=== PATIENT | female | born 1990 | race African-American/Black ===

== ENCOUNTER 2016-04-10 19:49 | Emergency (ER) | payer MEDICAID ==
[~2016-04-10] VITALS: Ht 162.6 cm; Wt 87.5 kg
[2016-04-10] MEDS ORDERED: IPRATRPIUM/ALBUTEROL 0.5/2.5MG 3 ML NEBU. NEB ONE ×2 (20:15→21:00)
[2016-04-10] MEDS ORDERED: PREDNISONE 20 MG TABLET PO ONE (21:00)
[2016-04-10 21:28] VITALS: BP 111/59
[2016-04-10] MEDS ORDERED: PROAIR HFA8.5 GM INH (21:39)
[2016-04-10] MEDS ORDERED: PRED50TA PO (21:39)
--- NOTE | 2016-04-10 21:39 | PHYS DOC ---
Past Medical History Past Medical History: Asthma Past Surgical History: No Surgical History Alcohol Use: None Drug Use: None Adult General Chief Complaint Chief Complaint: ASTHMA HPI HPI This is a 26-year-old female who has history of asthma that's been fairly well controlled without medication to comes in with mild shortness of breath for the past day. Patient states she does not have an inhaler and states she has not required one recent past. She denies any fever or chills or cough. She denies any chest pain. She denies any other history of several medical problems. She is speaking in complete sentences and in no signs of respiratory distress at this time. Review of Systems Review of Systems Constitutional: Denies fever or chills [] Eyes: Denies change in visual acuity, redness, or eye pain [] HENT: Denies nasal congestion or sore throat [] Respiratory: Denies cough, has shortness of breath [] Cardiovascular: No additional information not addressed in HPI [] GI: Denies abdominal pain, nausea, vomiting, bloody stools or diarrhea [] : Denies dysuria or hematuria [] Musculoskeletal: Denies back pain or joint pain [] Integument: Denies rash or skin lesions [] Neurologic: Denies headache, focal weakness or sensory changes [] Endocrine: Denies polyuria or polydipsia [] Current Medications Current Medications Current Medications Medications (Trade) Dose Ordered Sig/Sandra Start Time Stop Time Status Last Admin Dose Admin Albuterol/ Ipratropium (Duoneb) 3 ml 1X ONCE 04/10/16 21:00 04/10/16 21:01 DC 04/10/16 20:56 3 ML Prednisone (Prednisone) 50 mg 1X ONCE 04/10/16 21:00 04/10/16 21:01 DC 04/10/16 21:13 50 MG Allergies Allergies Allergies Coded Allergies Type Severity Reaction Last Updated Verified No Known Drug Allergies 04/10/16 No Physical Exam Physical Exam Constitutional: Well developed, well nourished, no acute distress, non-toxic appearance. [] HENT: Normocephalic, atraumatic, bilateral external ears normal, oropharynx moist, no oral exudates, nose normal. [] Eyes: PERRLA, EOMI, conjunctiva normal, no discharge. [] Neck: Normal range of motion, no tenderness, supple, no stridor. [] Cardiovascular:Heart rate regular rhythm, no murmur [] Lungs & Thorax: Bilateral breath sounds clear to auscultation [] Abdomen: Bowel sounds normal, soft, no tenderness, no masses, no pulsatile masses. [] Skin: Warm, dry, no erythema, no rash. [] Back: No tenderness, no CVA tenderness. [] Extremities: No tenderness, no cyanosis, no clubbing, ROM intact, no edema. [] Neurologic: Alert and oriented X 3, normal motor function, normal sensory function, no focal deficits noted. [] Psychologic: Affect normal, judgement normal, mood normal. [] Current Patient Data Vital Signs Vital Signs Date Time Temp Pulse Resp B/P Pulse Ox O2 Delivery O2 Flow Rate FiO2 04/10/16 21:28 98 111/59 99 Room Air 04/10/16 20:00 97.9 28 97.9 EKG EKG [] Radiology/Procedures Radiology/Procedures [] Course & Med Decision Making Course & Med Decision Making Pertinent Labs and Imaging studies reviewed. (See chart for details) This 26-year-old female who is likely having a mild asthma exacerbation was given several DuoNeb treatments and a dose of prednisone the department. Upon my reassessment, after breathing treatments the patient feels much improved and I will be sending the patient home with prescription for albuterol inhaler and prednisone with strict instruction return to the ER if she develops any worsening of her breathing and to follow closely with her primary care doctor in the next several days for symptom resolution. At this time, there is no indication to perform any laboratory workup or chest x-ray. She was discharged without incident feeling much improved. Dragon Disclaimer Dragon Disclaimer This electronic medical record was generated, in whole or in part, using a voice recognition dictation system. Departure Departure Impression: Primary Impression: Asthma exacerbation Disposition: 01 HOME, SELF-CARE Condition: IMPROVED Referrals: NO PCP (PCP) Patient Instructions: Asthma, Adult, [id number] Additional Instructions: Please follow up with your primary doctor in the next 2-3 days for your asthma. Take your inhaler as needed every 6 hours. Take your steroid as prescribed. Return to the ER if you develop any worsening of your symptoms. Scripts Prednisone 50 Mg Tablet1 Tab PO DAILY #5 TAB Prov:AURORA GU DO 04/10/16 Albuterol Sulfate (Proair Hfa Inhaler)8.5 Gm [id number] Puff INH PRN Q6HRS PRN SHORTNESS OF BREATH #1 INHALER Ref 0 Prov:AURORA GU DO 04/10/16 AURORA GU DO Apr 10, 2016 21:39
== END 2016-04-10 21:57 | disposition home or self-care (01) ==
LOC: ER 19:49
DX: J45.901 Unspecified asthma with (acute) exacerbation (principal)
CPT/HCPCS: 94250; 94640; 99284; J7512; J7620